=== PATIENT | male | born 1970 | race Two or more races ===

== ENCOUNTER 2025-02-21 10:47 | Emergency (ER) | payer BC ==
[2025-02-21] MEDS: Lidocaine 1% 10 ML MDV INJECT ONE (13:16)
[2025-02-21] MEDS: Diphtheria,Pertussis(Acell),Tetanus Vaccine 0.5 ML Syringe IM ONE (13:23)
== END 2025-02-21 14:46 | disposition home or self-care (01) ==
LOC: JP.ED 10:47
DX: S91.114A Laceration without foreign body of right lesser toe(s) without damage to nail, initial encounter (principal); F17.200 Nicotine dependence, unspecified, uncomplicated; Z91.030 Bee allergy status; Z79.899 Other long term (current) drug therapy; W45.8XXA Other foreign body or object entering through skin, initial encounter; Z23 Encounter for immunization
CPT/HCPCS: 12001; 90471; 90715; 99282; J2003